=== PATIENT | male | born 1970 | race Two or more races ===

== ENCOUNTER → 2017-10-22 | Outpatient (CLI) | payer OTHER | END | disposition home or self-care (01) | LOC: RAD 12:23 | PROVIDERS: ATTEND Physician Assistant | DX: S92.191A Other fracture of right talus, initial encounter for closed fracture (principal); M79.671 Pain in right foot; R60.9 Edema, unspecified; X58.XXXA Exposure to other specified factors, initial encounter; Y92.9 Unspecified place or not applicable; Y99.9 Unspecified external cause status ==